=== PATIENT | male | born 1950 | race African-American/Black ===

== ENCOUNTER 2017-02-11 10:25 | Inpatient (IN) | payer MEDICARE, MEDICAID ==
[~2017-02-11] VITALS: Ht 175.3 cm; Wt 79.4 kg
[2017-02-11] MEDS ORDERED: CROM10DR2 EACHEYE (10:36)
[2017-02-11] MEDS ORDERED: GABA-531 PO (10:36)
[2017-02-11] MEDS ORDERED: DONE10TA11 PO (10:36)
[2017-02-11] MEDS ORDERED: MEMA10TA2 PO (10:37)
[2017-02-11] MEDS ORDERED: FINA5TAB11 PO (10:37)
[2017-02-11] MEDS ORDERED: LITH600C PO (10:38)
[2017-02-11] MEDS ORDERED: TAMS-11 PO (10:38)
[2017-02-11] MEDS ORDERED: LORA1TAB PO (10:39)
[2017-02-11] MEDS ORDERED: OLAN10TA3 PO (10:39)
[2017-02-11] MEDS ORDERED: LATA2.5D2 OP (10:40)
[2017-02-11] MEDS ORDERED: LEVO125T PO (10:40)
[2017-02-11] MEDS ORDERED: SODIUM CHLORIDE 0.9% 1,000 ML IV ONE (10:45)
[2017-02-11] MEDS ORDERED: NALOXONE HCL 1 MG/ML 2ML VIAL IV ONE (10:45)
[2017-02-11 11:16] LABS: HEMATOCRIT. 39.3 % (42.0-52.0); HEMOGLOBIN. 13.2 g/dL (14.0-18.0); MEAN CORPUSCULAR HEMOGLOBIN 30.5 pg (28.0-32.0); MEAN CORPUSCULAR VOLUME 90.6 fL (80.0-94.0); MEAN PLATELET VOLUME 7.8 fl (7.4-10.4); PLATELET 313 x1000/uL (130-400); RED BLOOD CELL COUNT 4.34 mill/uL (4.7-6.1); RED CELL DISTRIBUTION WIDTH 13.5 % (11.6-14.6)
[2017-02-11 11:30] LABS: CARBON DIOXIDE 30 mEq/L (21-32); CHLORIDE 107 mEq/L (98-107); ETHANOL BLOOD < 10 mg/dL
[2017-02-11] MEDS ORDERED: CEFTRIAXONE 1 G PREMIX 50 ML IV ONE (11:30)
[2017-02-11 11:34] LABS: TROPONIN I < 0.02 ng/mL (0.00-0.04)
[2017-02-11 11:34] LABS: CLARITY URINE CLEAR (CLEAR); COLOR URINE DARK YELLOW (YELLOW); GLUCOSE URINE NEGATIVE (NEGATIVE); KETONES URINE NEGATIVE (NEGATIVE); LEUKOCYTE ESTERASE URINE TRACE (NEGATIVE); NITRITE URINE NEGATIVE (NEGATIVE); OCCULT BLOOD URINE 2+ (NEGATIVE); PH URINE 7.5 (4.5-8.0); PROTEIN URINE NEGATIVE (NEGATIVE); SPECIFIC GRAVITY URINE 1.012 (1.005-1.030)
[2017-02-11 11:38] LABS: PLATELET ESTIMATE NORMAL
[2017-02-11 11:45] LABS: PARTIAL THROMBOPLASTIN TIME 29.4 sec (23.4-31.0); PROTHROMBIN TIME 10.6 sec (9.4-11.6)
[2017-02-11 11:52] LABS: *AMPHETAMINES SCREEN URINE NEGATIVE (NEGATIVE); *BARBITURATES SCREEN URINE NEGATIVE (NEGATIVE); *BENZODIAZEPINES SCREEN URINE NEGATIVE (NEGATIVE); *COCAINE SCREEN URINE NEGATIVE (NEGATIVE); CANNABINOID URINE SCREEN NEGATIVE (NEGATIVE); METHADONE URINE SCREEN NEGATIVE (NEGATIVE); OPIATES URINE SCREEN NEGATIVE (NEGATIVE); PHENCYCLIDINE URINE SCREEN NEGATIVE (NEGATIVE)
[2017-02-11] MEDS ORDERED: LEVOFLOXACIN 500MG PREMIX 100 ML IV ONE (12:00)
[2017-02-11] MEDS ORDERED: VANCOMYCIN IV PER PHARMACY XX SCH (16:15)
[2017-02-11 16:26] LABS: T4 FREE 1.19 ng/dL (0.76-1.46)
[2017-02-11 17:14] LABS: FOLIC ACID (FOLATE) SERUM 12.1 ng/mL (>5.38)
[2017-02-11 17:33] VITALS: BP 131/70
[2017-02-11] MEDS: MULTIVITAMINS,THER W-MINERALS TABLET PO SCH (19:14)
[2017-02-11] MEDS ORDERED: ACETAMINOPHEN 325MG TABLET PO PRN (19:15)
[2017-02-11] MEDS ORDERED: ONDANSETRON HCL 4MG/2ML VIAL IV PRN (19:15)
[2017-02-11] MEDS ORDERED: IPRATROPIUM/ALBUTEROL 0.5-3(2.5)MG/3ML NEB INH PRN (19:15)
[2017-02-11] MEDS ORDERED: DOCUSATE SODIUM 100MG CAPSULE PO PRN (19:15)
[2017-02-11] MEDS ORDERED: POTASSIUM CHLORIDE 20MEQ TABLET SR PO NR (19:30)
[2017-02-11] MEDS: PIPERACILLIN/TAZ 3.375G PREMIX 50 ML IV SCH ×2 (19:36→23:57)
[2017-02-11] MEDS ORDERED: POTASSIUM CHLORIDE 20MEQ/PACKET PO NR (19:45)
[2017-02-11 20:00] VITALS: BP 136/70
[2017-02-11] MEDS ORDERED: VANCOMYCIN 1500MG in DEXTROSE 5% WATER 250ML IV NR (20:00)
[2017-02-11] MEDS ORDERED: DEXT 5%/0.45% NACL KCL 10MEQ/L 1,000 ML IV SCH (21:00)
[2017-02-11] MEDS: DEXT 5%/0.45% NACL KCL 10MEQ/L 1,000 ML IV SCH (22:21)
[2017-02-12] VITALS: BP 132/72
[2017-02-12 04:00] VITALS: BP 133/68
[2017-02-12] MEDS: PIPERACILLIN/TAZ 3.375G PREMIX 50 ML IV SCH ×4 (05:00→23:23)
[2017-02-12] MEDS: VANCOMYCIN 1250MG in DEXTROSE 5% WATER 250ML IV SCH ×2 (06:05→18:56)
[2017-02-12 07:09] LABS: HEMATOCRIT. 37.1 % (42.0-52.0); HEMOGLOBIN. 12.4 g/dL (14.0-18.0); MEAN CORPUSCULAR HEMOGLOBIN 30.6 pg (28.0-32.0); MEAN CORPUSCULAR VOLUME 91.6 fL (80.0-94.0); MEAN PLATELET VOLUME 7.9 fl (7.4-10.4); PLATELET 317 x1000/uL (130-400); RED BLOOD CELL COUNT 4.05 mill/uL (4.7-6.1); RED CELL DISTRIBUTION WIDTH 13.4 % (11.6-14.6)
[2017-02-12 08:00] VITALS: BP 121/65
[2017-02-12 08:27] LABS: CARBON DIOXIDE 25 mEq/L (21-32); CHLORIDE 112 mEq/L (98-107)
[2017-02-12] MEDS ORDERED: CROMOLYN SODIUM EACHEYE SCH (09:00)
[2017-02-12] MEDS: LEVOTHYROXINE SODIUM 125MCG TABLET PO SCH (09:28)
[2017-02-12] MEDS: FAMOTIDINE 20MG/2ML VIAL IV SCH ×2 (09:28→20:47)
[2017-02-12] MEDS: MULTIVITAMINS,THER W-MINERALS TABLET PO SCH (09:29)
[2017-02-12] MEDS: LORAZEPAM 1MG TABLET PO PRN (09:29)
[2017-02-12] MEDS: FINASTERIDE 5MG TABLET PO SCH (09:29)
[2017-02-12] MEDS: MEMANTINE HCL 10MG TABLET PO SCH (09:29)
[2017-02-12] MEDS: DEXT 5%/0.45% NACL KCL 10MEQ/L 1,000 ML IV SCH ×2 (09:30→17:51)
[2017-02-12] MEDS ORDERED: POTASSIUM CHLORIDE 20MEQ TABLET SR PO NR (11:30)
[2017-02-12 12:00] VITALS: BP 136/65
[2017-02-12] MEDS: TAMSULOSIN HCL 0.4MG SR CAPSULE PO SCH (12:17)
[2017-02-12 16:00] VITALS: BP 141/69
[2017-02-12 20:00] VITALS: BP 134/77
[2017-02-12] MEDS: GABAPENTIN 300MG CAPSULE PO SCH (20:46)
[2017-02-12] MEDS: OLANZAPINE 10MG TABLET PO SCH (20:47)
[2017-02-12] MEDS: DONEPEZIL HCL 10MG TABLET PO SCH (20:47)
[2017-02-12] MEDS: LATANOPROST 0.005% OPHTH DROPS 2.5ML BOTHEYE SCH (20:47)
[2017-02-12] MEDS: METOPROLOL TARTRATE 25MG TABLET PO SCH (20:49)
[2017-02-12 22:45] LABS: PLATELET ESTIMATE NORMAL
[2017-02-13] VITALS: BP 113/52
[2017-02-13 04:00] VITALS: BP 127/67
[2017-02-13] MEDS: PIPERACILLIN/TAZ 3.375G PREMIX 50 ML IV SCH ×4 (05:04→23:45)
[2017-02-13] MEDS: VANCOMYCIN 1250MG in DEXTROSE 5% WATER 250ML IV SCH ×2 (06:01→18:57)
[2017-02-13 06:50] LABS: HEMATOCRIT. 35.5 % (42.0-52.0); HEMOGLOBIN. 11.8 g/dL (14.0-18.0); MEAN CORPUSCULAR HEMOGLOBIN 30.4 pg (28.0-32.0); MEAN CORPUSCULAR VOLUME 91.2 fL (80.0-94.0); MEAN PLATELET VOLUME 7.8 fl (7.4-10.4); PLATELET 330 x1000/uL (130-400); RED BLOOD CELL COUNT 3.89 mill/uL (4.7-6.1); RED CELL DISTRIBUTION WIDTH 13.5 % (11.6-14.6)
[2017-02-13 06:59] LABS: CARBON DIOXIDE 26 mEq/L (21-32); CHLORIDE 117 mEq/L (98-107)
[2017-02-13 08:00] VITALS: BP 108/59
[2017-02-13] MEDS: FAMOTIDINE 20MG/2ML VIAL IV SCH ×2 (08:38→21:48)
[2017-02-13] MEDS: MULTIVITAMINS,THER W-MINERALS TABLET PO SCH (08:40)
[2017-02-13] MEDS: METOPROLOL TARTRATE 25MG TABLET PO SCH ×2 (08:40→21:00)
[2017-02-13] MEDS: FINASTERIDE 5MG TABLET PO SCH (08:40)
[2017-02-13] MEDS: LEVOTHYROXINE SODIUM 125MCG TABLET PO SCH (08:40)
[2017-02-13] MEDS: MEMANTINE HCL 10MG TABLET PO SCH (08:40)
[2017-02-13] MEDS: TAMSULOSIN HCL 0.4MG SR CAPSULE PO SCH (08:48)
[2017-02-13 10:04] LABS: AMMONIA 28 uMol/L (<32)
[2017-02-13] MEDS ORDERED: POTASSIUM CHLORIDE 20MEQ TABLET SR PO NR (10:30)
[2017-02-13 11:36] LABS: CREATINE KINASE 396 IU/L (39-308)
[2017-02-13 12:00] VITALS: BP 140/71
[2017-02-13] MEDS: DEXTROSE 5% WATER 1,000 ML IV SCH ×2 (12:37→23:45)
[2017-02-13 14:25] LABS: GLUCOSE URINE NEGATIVE (NEGATIVE); KETONES URINE TRACE (NEGATIVE); LEUKOCYTE ESTERASE URINE 2+ (NEGATIVE); NITRITE URINE NEGATIVE (NEGATIVE); OCCULT BLOOD URINE 3+ (NEGATIVE); PROTEIN URINE 3+ (NEGATIVE); SPECIFIC GRAVITY URINE 1.005 (1.005-1.030); UROBILINOGEN URINE 0.2 E.U./dL (0.2-1.0)
[2017-02-13 14:30] LABS: CLARITY URINE CLOUDY (CLEAR); COLOR URINE RED (YELLOW)
[2017-02-13 16:00] VITALS: BP 136/78
[2017-02-13 16:34] LABS: PLATELET ESTIMATE NORMAL
[2017-02-13 20:00] VITALS: BP 115/52
[2017-02-13] MEDS: GABAPENTIN 300MG CAPSULE PO SCH (21:48)
[2017-02-13] MEDS: DONEPEZIL HCL 10MG TABLET PO SCH (21:48)
[2017-02-13] MEDS: OLANZAPINE 10MG TABLET PO SCH (21:48)
[2017-02-13] MEDS: LATANOPROST 0.005% OPHTH DROPS 2.5ML BOTHEYE SCH (21:49)
[2017-02-14] VITALS: BP 133/66
[2017-02-14 04:00] VITALS: BP 153/60
[2017-02-14] MEDS ORDERED: VANCOMYCIN 1250MG in DEXTROSE 5% WATER 250ML IV SCH (04:00)
[2017-02-14] MEDS: PIPERACILLIN/TAZ 3.375G PREMIX 50 ML IV SCH ×3 (05:33→19:08)
[2017-02-14 05:58] LABS: CARBON DIOXIDE 25 mEq/L (21-32); CHLORIDE 119 mEq/L (98-107)
[2017-02-14 06:01] LABS: BASOPHILS % 0.6 % (0.0-2.0); HEMATOCRIT. 37.7 % (42.0-52.0); HEMOGLOBIN. 12.5 g/dL (14.0-18.0); LYMPHOCYTES % 7.9 % (20.0-50.0); MEAN CORPUSCULAR HEMOGLOBIN 30.5 pg (28.0-32.0); MEAN CORPUSCULAR VOLUME 92.2 fL (80.0-94.0); MEAN PLATELET VOLUME 7.7 fl (7.4-10.4); MONOCYTES % 6.3 % (2.0-8.0); NEUTROPHILS % 83.2 % (40.0-76.0); PLATELET 364 x1000/uL (130-400); RED BLOOD CELL COUNT 4.09 mill/uL (4.7-6.1)
[2017-02-14 08:00] VITALS: BP 127/66
[2017-02-14] MEDS ORDERED: DIATR MEGLU/DIATRIZOATE SOLN 30ML PO SCH (08:45)
[2017-02-14] MEDS: FAMOTIDINE 20MG/2ML VIAL IV SCH ×2 (08:54→21:25)
[2017-02-14] MEDS: FINASTERIDE 5MG TABLET PO SCH (08:54)
[2017-02-14] MEDS: TAMSULOSIN HCL 0.4MG SR CAPSULE PO SCH (08:55)
[2017-02-14] MEDS: MEMANTINE HCL 10MG TABLET PO SCH (08:56)
[2017-02-14] MEDS: METOPROLOL TARTRATE 25MG TABLET PO SCH ×2 (08:56→21:00)
[2017-02-14] MEDS: MULTIVITAMINS,THER W-MINERALS TABLET PO SCH (08:56)
[2017-02-14] MEDS: LEVOTHYROXINE SODIUM 125MCG TABLET PO SCH (08:56)
[2017-02-14 12:00] VITALS: BP 147/74
[2017-02-14] MEDS: DEXTROSE 5% WATER 1,000 ML IV SCH (12:19)
[2017-02-14] MEDS ORDERED: POTASSIUM CHLORIDE 20MEQ TABLET SR PO SCH (13:00)
[2017-02-14] MEDS ORDERED: CLONIDINE 0.1MG TABLET PO PRN (13:15)
[2017-02-14 16:00] VITALS: BP 144/67
[2017-02-14] MEDS: LORAZEPAM 1MG TABLET PO PRN (16:11)
[2017-02-14] MEDS: AMLODIPINE 2.5MG TABLET PO SCH (16:12)
[2017-02-14 20:00] VITALS: BP 143/84
[2017-02-14] MEDS: GABAPENTIN 300MG CAPSULE PO SCH ×2 (21:00→21:25)
[2017-02-14] MEDS: DONEPEZIL HCL 10MG TABLET PO SCH ×2 (21:00→21:25)
[2017-02-14] MEDS: OLANZAPINE 10MG TABLET PO SCH ×2 (21:00→21:25)
[2017-02-14] MEDS: LATANOPROST 0.005% OPHTH DROPS 2.5ML BOTHEYE SCH (21:25)
[2017-02-14] MEDS: VANCOMYCIN 1250MG in DEXTROSE 5% WATER 250ML IV SCH (21:25)
[2017-02-15] VITALS: BP 130/64
[2017-02-15] MEDS: PIPERACILLIN/TAZ 3.375G PREMIX 50 ML IV SCH ×5 (00:31→23:59)
[2017-02-15] MEDS: DEXTROSE 5% WATER 1,000 ML IV SCH (00:32)
[2017-02-15 04:00] VITALS: BP 127/70
[2017-02-15 06:31] LABS: HEMATOCRIT. 39.9 % (42.0-52.0); HEMOGLOBIN. 13.2 g/dL (14.0-18.0); MEAN CORPUSCULAR HEMOGLOBIN 30.5 pg (28.0-32.0); MEAN CORPUSCULAR VOLUME 92.3 fL (80.0-94.0); MEAN PLATELET VOLUME 7.6 fl (7.4-10.4); PLATELET 402 x1000/uL (130-400); RED BLOOD CELL COUNT 4.32 mill/uL (4.7-6.1); RED CELL DISTRIBUTION WIDTH 14.1 % (11.6-14.6)
[2017-02-15 07:05] LABS: CHLORIDE 117 mEq/L (98-107)
[2017-02-15 07:16] LABS: CARBON DIOXIDE 24 mEq/L (21-32); TROPONIN I < 0.02 ng/mL (0.00-0.04)
[2017-02-15] MEDS: LEVOTHYROXINE SODIUM 125MCG TABLET PO SCH ×2 (07:40→08:39)
[2017-02-15 08:00] VITALS: BP 141/67
[2017-02-15] MEDS: FAMOTIDINE 20MG/2ML VIAL IV SCH ×2 (08:38→20:33)
[2017-02-15] MEDS: MEMANTINE HCL 10MG TABLET PO SCH ×2 (08:39→09:00)
[2017-02-15] MEDS: METOPROLOL TARTRATE 25MG TABLET PO SCH ×3 (08:39→20:31)
[2017-02-15] MEDS: FINASTERIDE 5MG TABLET PO SCH (08:39)
[2017-02-15] MEDS: AMLODIPINE 2.5MG TABLET PO SCH ×4 (08:39→20:31)
[2017-02-15] MEDS: VANCOMYCIN 1250MG in DEXTROSE 5% WATER 250ML IV SCH ×2 (08:40→20:33)
[2017-02-15] MEDS: MULTIVITAMINS,THER W-MINERALS TABLET PO SCH ×2 (08:44→09:00)
[2017-02-15] MEDS: TAMSULOSIN HCL 0.4MG SR CAPSULE PO SCH ×2 (08:44→09:00)
[2017-02-15] MEDS ORDERED: POTASSIUM CHLORIDE 20MEQ TABLET SR PO NR (11:00)
[2017-02-15 12:00] VITALS: BP 112/79
[2017-02-15] MEDS: POTASSIUM CHLORIDE INJ 30 MEQ in DEXT 5%/0.2% NACL 1,000 ML IV SCH (13:24)
[2017-02-15 16:00] VITALS: BP 128/72
[2017-02-15 20:21] VITALS: BP 120/57
[2017-02-15] MEDS: DONEPEZIL HCL 10MG TABLET PO SCH (20:30)
[2017-02-15] MEDS: GABAPENTIN 300MG CAPSULE PO SCH (20:31)
[2017-02-15] MEDS: OLANZAPINE 10MG TABLET PO SCH (20:31)
[2017-02-15] MEDS: LATANOPROST 0.005% OPHTH DROPS 2.5ML BOTHEYE SCH (20:33)
[2017-02-16] VITALS: BP 139/64
[2017-02-16 04:00] VITALS: BP 137/65
[2017-02-16 05:51] LABS: HEMATOCRIT. 39.9 % (42.0-52.0); HEMOGLOBIN. 13.2 g/dL (14.0-18.0); MEAN CORPUSCULAR HEMOGLOBIN 30.5 pg (28.0-32.0); MEAN CORPUSCULAR VOLUME 92.3 fL (80.0-94.0); MEAN PLATELET VOLUME 7.7 fl (7.4-10.4); PLATELET 430 x1000/uL (130-400); RED BLOOD CELL COUNT 4.33 mill/uL (4.7-6.1); RED CELL DISTRIBUTION WIDTH 14.1 % (11.6-14.6)
[2017-02-16] MEDS: PIPERACILLIN/TAZ 3.375G PREMIX 50 ML IV SCH ×2 (06:02→11:26)
[2017-02-16] MEDS: POTASSIUM CHLORIDE INJ 30 MEQ in DEXT 5%/0.2% NACL 1,000 ML IV SCH (06:02)
[2017-02-16] MEDS: LEVOTHYROXINE SODIUM 125MCG TABLET PO SCH (07:40)
[2017-02-16 08:00] VITALS: BP 150/83
[2017-02-16] MEDS: MEMANTINE HCL 10MG TABLET PO SCH (08:23)
[2017-02-16] MEDS: METOPROLOL TARTRATE 25MG TABLET PO SCH (08:23)
[2017-02-16] MEDS: FINASTERIDE 5MG TABLET PO SCH (08:23)
[2017-02-16] MEDS: AMLODIPINE 2.5MG TABLET PO SCH (08:23)
[2017-02-16] MEDS: TAMSULOSIN HCL 0.4MG SR CAPSULE PO SCH (08:23)
[2017-02-16] MEDS: MULTIVITAMINS,THER W-MINERALS TABLET PO SCH (08:24)
[2017-02-16] MEDS: VANCOMYCIN 1250MG in DEXTROSE 5% WATER 250ML IV SCH (08:29)
[2017-02-16] MEDS: FAMOTIDINE 20MG/2ML VIAL IV SCH (08:29)
[2017-02-16 11:09] LABS: BG CARBOXYHEMOGLOBIN 0.6 % (0.5-1.5); BG DEOXYHEMOGLOBIN 1.8 % (0.0-5.0); BG FRACTION INSPIRED OXYGEN 28; BG HCO3 ACT 26.9 mmol/L (22.0-26.0); BG METHEMOGLOBIN 0.2 % (0.0-1.5); BG OXYGEN SATURATION 98.2 % (92.0-98.5); BG OXYHEMOGLOBIN 97.4 % (94.0-97.0); BG PH 7.457 (7.350-7.450); BG PO2 103.9 mmHg (75.0-100.0); BG SAMPLE SITE LEFT RADIAL; BG TOTAL HEMOGLOBIN 14.6 g/dL (12.0-18.0); BG VENT MODE NASAL CANNULA
[2017-02-16] MEDS ORDERED: POTASSIUM CHLORIDE 20MEQ TABLET SR PO SCH (11:15)
[2017-02-16 12:00] VITALS: BP 147/86
[2017-02-16 13:48] LABS: PLATELET ESTIMATE NORMAL
[2017-02-16] MEDS ORDERED: KCL 20MEQ/100ML PREMIX 100 ML IV SCH (15:00)
[2017-02-16 16:00] VITALS: BP 158/83
[2017-02-16 16:42] VITALS: BP 158/83
[2017-02-16] MEDS ORDERED: VANCOMYCIN 1250MG in DEXTROSE 5% WATER 250ML IV NR (21:00)
[2017-02-16 21:30] LABS: PLATELET ESTIMATE NORMAL
== END 2017-02-16 18:06 | DRG 871 ==
LOC: ER 10:25 → 7WST 11:46 → EDBEDREQ 11:49 → EDBEDREQTM 11:49 → SUPCPDRO 15:34 → ENRESERV 16:30 → CANBEDREQ 16:41
PROVIDERS: ADMIT Family Medicine Adult Medicine; ATTEND Family Medicine Adult Medicine
DX: A41.9 Sepsis, unspecified organism (principal); G92 Toxic encephalopathy; I47.2 Ventricular tachycardia; N17.9 Acute kidney failure, unspecified; E87.0 Hyperosmolality and hypernatremia; N39.0 Urinary tract infection, site not specified; E44.1 Mild protein-calorie malnutrition; F20.0 Paranoid schizophrenia; I47.1 Supraventricular tachycardia; J98.11 Atelectasis; G30.9 Alzheimer's disease, unspecified; F02.80 Dementia in other diseases classified elsewhere, unspecified severity, without behavioral disturbance, psychotic disturbance, mood disturbance, and anxiety; G20 Parkinson's disease; E03.9 Hypothyroidism, unspecified; E78.5 Hyperlipidemia, unspecified; E87.6 Hypokalemia; F41.9 Anxiety disorder, unspecified; I10 Essential (primary) hypertension; K80.20 Calculus of gallbladder without cholecystitis without obstruction; N40.0 Benign prostatic hyperplasia without lower urinary tract symptoms; R31.0 Gross hematuria; Z78.1 Physical restraint status; Z79.899 Other long term (current) drug therapy; Z68.25 Body mass index [BMI] 25.0-25.9, adult; Z87.440 Personal history of urinary (tract) infections; Z87.891 Personal history of nicotine dependence
CPT/HCPCS: 36415; 36600; 51702; 70450; 70551; 71010; 74176; 76705; 80048; 80053; 80061; 80076; 80178; 80202; 80305; 81001; 82140; 82248; 82375; 82550; 82607; 82746; 82805; 82962; 83036; 83605; 83690; 83735; 83880; 84100; 84439; 84443; 84481; 84484; 85025; 85610; 85730; 87040; 87086; 92610; 93005; 93306; 93970; 96365; 96367; 96375; 99291; G0482; J0696; J1956; J2310; J2543; J3370; J3480; J3490; J7030; J7050; J7060; J7070; Q9963; A4315

== ENCOUNTER 2017-03-17 18:40 | Inpatient (IN) | payer MEDICARE, MEDICAID ==
[~2017-03-17] VITALS: Ht 177.8 cm; Wt 56.7 kg
[2017-03-17] MEDS ORDERED: SODIUM CHLORIDE 0.9% 1,000 ML IV ONE (19:07)
[2017-03-17 20:15] LABS: HEMATOCRIT. 51.5 % (42.0-52.0); HEMOGLOBIN. 17.2 g/dL (14.0-18.0); MEAN CORPUSCULAR HEMOGLOBIN 30.3 pg (28.0-32.0); MEAN CORPUSCULAR VOLUME 90.9 fL (80.0-94.0); MEAN PLATELET VOLUME 8.2 fl (7.4-10.4); PLATELET 292 x1000/uL (130-400); RED BLOOD CELL COUNT 5.66 mill/uL (4.7-6.1); RED CELL DISTRIBUTION WIDTH 14.3 % (11.6-14.6)
[2017-03-17 20:20] LABS: CHLORIDE 119 mEq/L (98-107); INR 1.2; PROTHROMBIN TIME 12.5 sec (9.4-11.6)
[2017-03-17 20:24] LABS: CARBON DIOXIDE 27 mEq/L (21-32)
[2017-03-17 20:32] LABS: PLATELET ESTIMATE NORMAL
[2017-03-18] MEDS ORDERED: SODIUM CHLORIDE 0.9% 1,000 ML IV SCH (00:56)
[2017-03-18 08:00] VITALS: BP 127/70
[2017-03-18] MEDS ORDERED: OMEPRAZOLE 20MG CAPSULE EXTENDED RELEASE PO SCH (11:15)
[2017-03-18 12:00] VITALS: BP 138/56
[2017-03-18 13:53] VITALS: BP 127/70
[2017-03-18] MEDS ORDERED: LORAZEPAM 1MG TABLET PO PRN (15:15)
[2017-03-18] MEDS: LITHIUM CARBONATE 150 MG CAPSULE PO SCH (17:00)
[2017-03-18] MEDS ORDERED: ONDANSETRON HCL 4MG/2ML VIAL IV PRN (17:00)
[2017-03-18] MEDS ORDERED: DOCUSATE SODIUM 100MG CAPSULE PO PRN (17:00)
[2017-03-18] MEDS ORDERED: IPRATROPIUM/ALBUTEROL 0.5-3(2.5)MG/3ML NEB INH PRN (17:00)
[2017-03-18] MEDS: DEXTROSE 5% WATER 1,000 ML IV SCH (17:31)
[2017-03-18 19:19] LABS: CLARITY URINE CLEAR (CLEAR); COLOR URINE YELLOW (YELLOW); GLUCOSE URINE NEGATIVE (NEGATIVE); KETONES URINE NEGATIVE (NEGATIVE); LEUKOCYTE ESTERASE URINE TRACE (NEGATIVE); NITRITE URINE NEGATIVE (NEGATIVE); OCCULT BLOOD URINE NEGATIVE (NEGATIVE); PH URINE 6.5 (4.5-8.0); PROTEIN URINE NEGATIVE (NEGATIVE); SPECIFIC GRAVITY URINE 1.016 (1.005-1.030); UROBILINOGEN URINE 0.2 E.U./dL (0.2-1.0)
[2017-03-18 19:38] LABS: *AMPHETAMINES SCREEN URINE NEGATIVE (NEGATIVE); *BARBITURATES SCREEN URINE NEGATIVE (NEGATIVE); *BENZODIAZEPINES SCREEN URINE NEGATIVE (NEGATIVE); *COCAINE SCREEN URINE NEGATIVE (NEGATIVE); CANNABINOID URINE SCREEN NEGATIVE (NEGATIVE); METHADONE URINE SCREEN NEGATIVE (NEGATIVE); OPIATES URINE SCREEN NEGATIVE (NEGATIVE); PHENCYCLIDINE URINE SCREEN NEGATIVE (NEGATIVE)
[2017-03-18 20:00] VITALS: BP 121/57
[2017-03-18] MEDS: LATANOPROST 0.005% OPHTH DROPS 2.5ML BOTHEYE SCH (20:52)
[2017-03-18] MEDS: GABAPENTIN 300MG CAPSULE PO SCH (20:53)
[2017-03-18] MEDS: DONEPEZIL HCL 10MG TABLET PO SCH (20:53)
[2017-03-18] MEDS: TAMSULOSIN HCL 0.4MG SR CAPSULE PO SCH (20:53)
[2017-03-18] MEDS: OLANZAPINE 10MG TABLET PO SCH (21:00)
[2017-03-18] MEDS ORDERED: LORAZEPAM 2MG/ML CPJ IV PRN (23:30)
[2017-03-19] VITALS: BP 109/43
[2017-03-19] MEDS ORDERED: LORAZEPAM 1MG TABLET PO PRN (03:15)
[2017-03-19 04:00] VITALS: BP 122/67
[2017-03-19] MEDS ORDERED: LEVOTHYROXINE SODIUM 125MCG TABLET PO SCH (07:20)
[2017-03-19 07:33] LABS: BASOPHILS % 0.3 % (0.0-2.0); EOSINOPHILS % 0.6 % (0.0-5.0); HEMATOCRIT. 47.3 % (42.0-52.0); HEMOGLOBIN. 15.5 g/dL (14.0-18.0); LYMPHOCYTES % 9.6 % (20.0-50.0); MEAN CORPUSCULAR HEMOGLOBIN 30.4 pg (28.0-32.0); MEAN CORPUSCULAR VOLUME 92.6 fL (80.0-94.0); MEAN PLATELET VOLUME 8.4 fl (7.4-10.4); MONOCYTES % 4.5 % (2.0-8.0); PLATELET 254 x1000/uL (130-400); RED BLOOD CELL COUNT 5.11 mill/uL (4.7-6.1); RED CELL DISTRIBUTION WIDTH 14.3 % (11.6-14.6)
[2017-03-19 07:53] LABS: PHOSPHORUS 2.5 mg/dL (2.5-4.9)
[2017-03-19 08:00] VITALS: BP 137/55
[2017-03-19] MEDS: LITHIUM CARBONATE 150 MG CAPSULE PO SCH ×2 (09:00→17:00)
[2017-03-19] MEDS: FINASTERIDE 5MG TABLET PO SCH (09:00)
[2017-03-19] MEDS: MEMANTINE HCL 10MG TABLET PO SCH (09:00)
[2017-03-19] MEDS: PANTOPRAZOLE SODIUM 40 MG/VIAL IV SCH (09:00)
[2017-03-19 12:00] VITALS: BP 134/61
[2017-03-19 12:08] LABS: CREATINE KINASE 21 IU/L (39-308)
[2017-03-19 16:00] VITALS: BP 131/56
[2017-03-19] MEDS ORDERED: LEVOFLOXACIN 500MG PREMIX 100 ML IV NR (17:00)
[2017-03-19 20:00] VITALS: BP 151/77
[2017-03-19] MEDS: TAMSULOSIN HCL 0.4MG SR CAPSULE PO SCH (21:00)
[2017-03-19] MEDS: DONEPEZIL HCL 10MG TABLET PO SCH (21:00)
[2017-03-19] MEDS: GABAPENTIN 300MG CAPSULE PO SCH (21:00)
[2017-03-19] MEDS: OLANZAPINE 10MG TABLET PO SCH (21:00)
[2017-03-19] MEDS: LATANOPROST 0.005% OPHTH DROPS 2.5ML BOTHEYE SCH (21:00)
[2017-03-20] VITALS: BP 157/77
[2017-03-20 04:00] VITALS: BP 167/58
[2017-03-20 06:23] LABS: HEMOGLOBIN 16.1 g/dL (14.0-18.0); MEAN CORPUSCULAR HEMOGLOBIN 30.3 pg (28.0-32.0); MEAN CORPUSCULAR VOLUME 92.1 fL (80.0-94.0); PLATELET 244 x1000/uL (130-400); RED BLOOD CELL COUNT 5.31 mill/uL (4.7-6.1); RED CELL DISTRIBUTION WIDTH 14.5 % (11.6-14.6)
[2017-03-20 06:37] LABS: AMMONIA 18 uMol/L (<32)
[2017-03-20 08:00] VITALS: BP 144/70
[2017-03-20 08:22] LABS: CARBON DIOXIDE 27 mEq/L (21-32); CHLORIDE 125 mEq/L (98-107)
[2017-03-20] MEDS: PANTOPRAZOLE SODIUM 40 MG/VIAL IV SCH (09:44)
[2017-03-20] MEDS: MEMANTINE HCL 10MG TABLET PO SCH (09:44)
[2017-03-20] MEDS: FINASTERIDE 5MG TABLET PO SCH (09:44)
[2017-03-20] MEDS: DEXTROSE 5% WATER 1,000 ML IV SCH (09:44)
[2017-03-20] MEDS: LEVOTHYROXINE SODIUM 100 MCG/ VIAL IV SCH (09:45)
[2017-03-20 12:00] VITALS: BP 151/73
[2017-03-20 16:00] VITALS: BP 145/57
[2017-03-20] MEDS: LEVOFLOXACIN 250MG PREMIX 50 ML IV SCH (16:57)
[2017-03-20 20:00] VITALS: BP 124/64
[2017-03-20] MEDS: GABAPENTIN 300MG CAPSULE PO SCH (21:59)
[2017-03-20] MEDS: LATANOPROST 0.005% OPHTH DROPS 2.5ML BOTHEYE SCH (21:59)
[2017-03-20] MEDS: TAMSULOSIN HCL 0.4MG SR CAPSULE PO SCH (22:00)
[2017-03-20] MEDS: DONEPEZIL HCL 10MG TABLET PO SCH (22:01)
[2017-03-20] MEDS: HYDROCHLOROTHIAZIDE 25MG TABLET PO SCH (22:01)
[2017-03-20] MEDS: AMILORIDE HCL 5 MG TABLET PO SCH (22:01)
[2017-03-20] MEDS: OLANZAPINE 10MG TABLET PO SCH (22:02)
[2017-03-20] MEDS ORDERED: POTASSIUM CHLORIDE 20MEQ TABLET SR PO NR (23:15)
[2017-03-21] VITALS: BP 132/74
[2017-03-21 00:20] LABS: SODIUM URINE RANDOM 51 mEq/L
[2017-03-21] MEDS: IPRATROPIUM/ALBUTEROL 0.5-3(2.5)MG/3ML NEB HHN SCH ×4 (03:26→21:56)
[2017-03-21 04:00] VITALS: BP_SYST 136; BP_SYST 141; BP_DIAS 70; BP_DIAS 73
[2017-03-21 05:21] LABS: BASOPHILS % 0.6 % (0.0-2.0); EOSINOPHILS % 1.4 % (0.0-5.0); HEMATOCRIT. 46.4 % (42.0-52.0); HEMOGLOBIN. 15.3 g/dL (14.0-18.0); LYMPHOCYTES % 13.6 % (20.0-50.0); MEAN CORPUSCULAR HEMOGLOBIN 30.4 pg (28.0-32.0); MEAN CORPUSCULAR VOLUME 92.4 fL (80.0-94.0); MEAN PLATELET VOLUME 8.6 fl (7.4-10.4); MONOCYTES % 4.9 % (2.0-8.0); NEUTROPHILS % 79.5 % (40.0-76.0); PLATELET 208 x1000/uL (130-400); RED BLOOD CELL COUNT 5.02 mill/uL (4.7-6.1); RED CELL DISTRIBUTION WIDTH 14.5 % (11.6-14.6)
[2017-03-21 07:00] LABS: HEPATITIS B SURFACE ANTIGEN NEGATIVE
[2017-03-21 07:28] LABS: HEPATITIS B CORE AB IGM NEGATIVE
[2017-03-21 07:30] LABS: HEPATITIS A AB IGM NEGATIVE (NEGATIVE)
[2017-03-21 08:00] VITALS: BP 114/90
[2017-03-21] MEDS: HYDROCHLOROTHIAZIDE 25MG TABLET PO SCH (08:37)
[2017-03-21] MEDS: PANTOPRAZOLE SODIUM 40 MG/VIAL IV SCH (08:37)
[2017-03-21] MEDS: DEXTROSE 5% WATER 1,000 ML IV SCH ×2 (08:37→13:01)
[2017-03-21] MEDS: FINASTERIDE 5MG TABLET PO SCH (08:37)
[2017-03-21] MEDS: MEMANTINE HCL 10MG TABLET PO SCH (08:37)
[2017-03-21 09:07] LABS: FOLICLE STIMULATING HORMONE 4.1 mIU/mL (1.5-12.4)
[2017-03-21] MEDS: LEVOTHYROXINE SODIUM 100 MCG/ VIAL IV SCH (09:18)
[2017-03-21] MEDS: AMILORIDE HCL 5 MG TABLET PO SCH (09:18)
[2017-03-21] MEDS ORDERED: POTASSIUM CHLORIDE 20MEQ TABLET SR PO SCH (09:45)
[2017-03-21] MEDS: LITHIUM CARBONATE 150 MG CAPSULE PO SCH ×2 (10:23→16:22)
[2017-03-21 12:00] VITALS: BP 138/72
[2017-03-21 16:00] VITALS: BP 123/61
[2017-03-21] MEDS: LEVOFLOXACIN 250MG PREMIX 50 ML IV SCH (16:22)
[2017-03-21 20:00] VITALS: BP 131/78
[2017-03-21] MEDS: LATANOPROST 0.005% OPHTH DROPS 2.5ML BOTHEYE SCH (21:00)
[2017-03-21] MEDS: DONEPEZIL HCL 10MG TABLET PO SCH (21:46)
[2017-03-21] MEDS: GABAPENTIN 300MG CAPSULE PO SCH (21:46)
[2017-03-21] MEDS: TAMSULOSIN HCL 0.4MG SR CAPSULE PO SCH (21:47)
[2017-03-21] MEDS: OLANZAPINE 10MG TABLET PO SCH (21:47)
[2017-03-22] VITALS: BP 123/69
[2017-03-22] MEDS: IPRATROPIUM/ALBUTEROL 0.5-3(2.5)MG/3ML NEB HHN SCH ×4 (01:25→20:34)
[2017-03-22 04:00] VITALS: BP 120/70
[2017-03-22] MEDS: FAMOTIDINE 20MG TABLET PO SCH (07:01)
[2017-03-22 08:00] VITALS: BP 130/73
[2017-03-22] MEDS: AMILORIDE HCL 5 MG TABLET PO SCH (10:33)
[2017-03-22] MEDS: MEMANTINE HCL 10MG TABLET PO SCH (10:33)
[2017-03-22] MEDS: HYDROCHLOROTHIAZIDE 25MG TABLET PO SCH (10:33)
[2017-03-22] MEDS: FINASTERIDE 5MG TABLET PO SCH (10:34)
[2017-03-22] MEDS: LEVOTHYROXINE SODIUM 100 MCG/ VIAL IV SCH (10:37)
[2017-03-22] MEDS ORDERED: POTASSIUM CHLORIDE 20MEQ TABLET SR PO NR (11:00)
[2017-03-22 12:00] VITALS: BP 121/57
[2017-03-22 16:00] VITALS: BP 116/72
[2017-03-22 17:12] LABS: TESTOSTERONE FREE 23.9 pg/mL (6.6-18.1)
[2017-03-22] MEDS: LEVOFLOXACIN 250MG PREMIX 50 ML IV SCH (17:40)
[2017-03-22 20:00] VITALS: BP 137/64
[2017-03-22] MEDS: GABAPENTIN 300MG CAPSULE PO SCH (20:50)
[2017-03-22] MEDS: LATANOPROST 0.005% OPHTH DROPS 2.5ML BOTHEYE SCH (20:50)
[2017-03-22] MEDS: TAMSULOSIN HCL 0.4MG SR CAPSULE PO SCH (20:53)
[2017-03-22] MEDS: DONEPEZIL HCL 10MG TABLET PO SCH (20:53)
[2017-03-22] MEDS: OLANZAPINE 10MG TABLET PO SCH (20:54)
[2017-03-23] VITALS: BP 129/70
[2017-03-23 04:00] VITALS: BP 115/68
[2017-03-23] MEDS: IPRATROPIUM/ALBUTEROL 0.5-3(2.5)MG/3ML NEB HHN SCH ×3 (07:48→21:15)
[2017-03-23] MEDS: FAMOTIDINE 20MG TABLET PO SCH (07:55)
[2017-03-23 08:00] VITALS: BP 130/73
[2017-03-23 08:05] LABS: HEMATOCRIT. 43.9 % (42.0-52.0); HEMOGLOBIN. 14.7 g/dL (14.0-18.0); MEAN CORPUSCULAR HEMOGLOBIN 30.6 pg (28.0-32.0); MEAN CORPUSCULAR VOLUME 91.3 fL (80.0-94.0); PLATELET 222 x1000/uL (130-400); RED CELL DISTRIBUTION WIDTH 14.4 % (11.6-14.6)
[2017-03-23 08:35] LABS: PHOSPHORUS 2.1 mg/dL (2.5-4.9)
[2017-03-23] MEDS: LEVOTHYROXINE SODIUM 100 MCG/ VIAL IV SCH (09:12)
[2017-03-23] MEDS: MEMANTINE HCL 10MG TABLET PO SCH (09:12)
[2017-03-23] MEDS: HYDROCHLOROTHIAZIDE 25MG TABLET PO SCH (09:12)
[2017-03-23] MEDS: FINASTERIDE 5MG TABLET PO SCH (09:12)
[2017-03-23] MEDS: AMILORIDE HCL 5 MG TABLET PO SCH (09:13)
[2017-03-23 10:13] LABS: PLATELET ESTIMATE NORMAL
[2017-03-23 12:00] VITALS: BP 128/67
[2017-03-23 16:00] VITALS: BP 120/72
[2017-03-23] MEDS: LEVOFLOXACIN 250MG PREMIX 50 ML IV SCH (17:51)
[2017-03-23] MEDS: DONEPEZIL HCL 10MG TABLET PO SCH (21:53)
[2017-03-23] MEDS: LATANOPROST 0.005% OPHTH DROPS 2.5ML BOTHEYE SCH (21:53)
[2017-03-23] MEDS: GABAPENTIN 300MG CAPSULE PO SCH (21:55)
[2017-03-23] MEDS: OLANZAPINE 10MG TABLET PO SCH (21:55)
[2017-03-23] MEDS: TAMSULOSIN HCL 0.4MG SR CAPSULE PO SCH (21:55)
[2017-03-24] VITALS (7 sets, daily range): BP systolic 108–131; BP diastolic 72–80
[2017-03-24] MEDS: IPRATROPIUM/ALBUTEROL 0.5-3(2.5)MG/3ML NEB HHN SCH ×2 (01:31→08:06)
[2017-03-24] MEDS: FAMOTIDINE 20MG TABLET PO SCH (07:06)
[2017-03-24 07:14] LABS: HEMATOCRIT. 46.3 % (42.0-52.0); HEMOGLOBIN. 15.6 g/dL (14.0-18.0); MEAN CORPUSCULAR HEMOGLOBIN 30.7 pg (28.0-32.0); MEAN CORPUSCULAR VOLUME 91.1 fL (80.0-94.0); MEAN PLATELET VOLUME 8.8 fl (7.4-10.4); PLATELET 230 x1000/uL (130-400); RED BLOOD CELL COUNT 5.08 mill/uL (4.7-6.1); RED CELL DISTRIBUTION WIDTH 14.4 % (11.6-14.6)
[2017-03-24 07:49] LABS: CARBON DIOXIDE 24 mEq/L (21-32); CHLORIDE 111 mEq/L (98-107); PHOSPHORUS 2.5 mg/dL (2.5-4.9)
[2017-03-24] MEDS: AMILORIDE HCL 5 MG TABLET PO SCH (09:13)
[2017-03-24] MEDS: HYDROCHLOROTHIAZIDE 25MG TABLET PO SCH (09:13)
[2017-03-24] MEDS: MEMANTINE HCL 10MG TABLET PO SCH (09:13)
[2017-03-24] MEDS: FINASTERIDE 5MG TABLET PO SCH (09:13)
[2017-03-24] MEDS: LEVOTHYROXINE SODIUM 100 MCG/ VIAL IV SCH (09:28)
[2017-03-24] MEDS ORDERED: LACTULOSE 20G/30ML UDC PO NR (10:15)
[2017-03-24] MEDS ORDERED: DOCUSATE SODIUM 250MG CAPSULE PO NR (10:15)
[2017-03-24] MEDS ORDERED: LEVOFLOXACIN 250MG TABLET PO SCH (11:00)
[2017-03-24 18:00] LABS: PLATELET ESTIMATE NORMAL
[2017-03-24] MEDS ORDERED: DILTIAZEM HCL 60MG TABLET PO NR (19:17)
== END 2017-03-24 23:20 | DRG 682 ==
LOC: ER 20:24 → 6EST 03-18 00:56 → ENRESERV 03-18 03:48 → 6EST 03-18 11:07
PROVIDERS: ADMIT Family Medicine Adult Medicine; ATTEND Family Medicine Adult Medicine
DX: N17.9 Acute kidney failure, unspecified (principal); G93.41 Metabolic encephalopathy; E87.0 Hyperosmolality and hypernatremia; E46 Unspecified protein-calorie malnutrition; G20 Parkinson's disease; R16.0 Hepatomegaly, not elsewhere classified; J84.10 Pulmonary fibrosis, unspecified; F20.0 Paranoid schizophrenia; N39.0 Urinary tract infection, site not specified; Z68.1 Body mass index [BMI] 19.9 or less, adult; T43.595A Adverse effect of other antipsychotics and neuroleptics, initial encounter; E03.9 Hypothyroidism, unspecified; E86.0 Dehydration; E87.6 Hypokalemia; N18.9 Chronic kidney disease, unspecified; N40.0 Benign prostatic hyperplasia without lower urinary tract symptoms; R62.7 Adult failure to thrive; K80.20 Calculus of gallbladder without cholecystitis without obstruction; E78.5 Hyperlipidemia, unspecified; F02.80 Dementia in other diseases classified elsewhere, unspecified severity, without behavioral disturbance, psychotic disturbance, mood disturbance, and anxiety; F17.210 Nicotine dependence, cigarettes, uncomplicated; G30.9 Alzheimer's disease, unspecified; I12.9 Hypertensive chronic kidney disease with stage 1 through stage 4 chronic kidney disease, or unspecified chronic kidney disease; R73.9 Hyperglycemia, unspecified; N41.9 Inflammatory disease of prostate, unspecified; N25.1 Nephrogenic diabetes insipidus
CPT/HCPCS: 36415; 71010; 71250; 76700; 80048; 80053; 80076; 80178; 80305; 81001; 81003; 82140; 82533; 82550; 83001; 83002; 83520; 83735; 83935; 84100; 84300; 84402; 84403; 84439; 84443; 85025; 85027; 85610; 86376; 86705; 86709; 86803; 87040; 87086; 87106; 87340; 92610; 93005; 94640; 96360; 96361; 97162; 97166; 99285; C1893; C9113; G0482; J1956; J2060; J3490; J7030; J7040; J7042; J7070; J7620

== ENCOUNTER 2018-08-27 12:13 | Inpatient (IN) | payer MEDICAID, MEDICARE ==
[~2018-08-27] VITALS: Ht 175.3 cm; Wt 95.3 kg
[2018-08-27] MEDS ORDERED: SODIUM CHLORIDE 0.9% 1,000 ML IV ONE (13:40)
[2018-08-27 14:36] LABS: BASOPHILS % 0.5 % (0.0-2.0); EOSINOPHILS % 2.2 % (0.0-5.0); HEMATOCRIT. 45.9 % (42.0-52.0); HEMOGLOBIN. 15.5 g/dL (14.0-18.0); LYMPHOCYTES % 27.5 % (20.0-50.0); MEAN CORPUSCULAR HEMOGLOBIN 32.3 pg (28.0-32.0); MEAN CORPUSCULAR VOLUME 95.7 fL (80.0-94.0); MEAN PLATELET VOLUME 7.4 fl (7.4-10.4); MONOCYTES % 8.9 % (2.0-8.0); NEUTROPHILS % 60.9 % (40.0-76.0); PLATELET 248 x1000/uL (130-400); RED CELL DISTRIBUTION WIDTH 14.2 % (11.6-14.6)
[2018-08-27 14:42] LABS: CHLORIDE 104 mEq/L (98-107)
[2018-08-27 14:46] LABS: ETHANOL BLOOD < 10 mg/dL
[2018-08-27 14:55] LABS: INR 1.1; PROTHROMBIN TIME 10.6 sec (9.1-11.1)
[2018-08-27 15:13] LABS: CLARITY URINE CLEAR (CLEAR); COLOR URINE YELLOW (YELLOW); KETONES URINE NEGATIVE (NEGATIVE); LEUKOCYTE ESTERASE URINE NEGATIVE (NEGATIVE); NITRITE URINE NEGATIVE (NEGATIVE); OCCULT BLOOD URINE NEGATIVE (NEGATIVE); PROTEIN URINE NEGATIVE (NEGATIVE); SPECIFIC GRAVITY URINE 1.019 (1.005-1.030); UROBILINOGEN URINE 0.2 E.U./dL (0.2-1.0)
[2018-08-27 15:23] LABS: OPIATES URINE SCREEN NEGATIVE (NEGATIVE)
[2018-08-27 15:24] LABS: CANNABINOID URINE SCREEN NEGATIVE (NEGATIVE); PHENCYCLIDINE URINE SCREEN NEGATIVE (NEGATIVE)
[2018-08-27 15:25] LABS: METHADONE URINE SCREEN NEGATIVE (NEGATIVE)
[2018-08-27 15:26] LABS: *AMPHETAMINES SCREEN URINE NEGATIVE (NEGATIVE); *BARBITURATES SCREEN URINE NEGATIVE (NEGATIVE); *BENZODIAZEPINES SCREEN URINE NEGATIVE (NEGATIVE); *COCAINE SCREEN URINE NEGATIVE (NEGATIVE)
[2018-08-27 20:00] VITALS: BP 126/84
[2018-08-27] MEDS ORDERED: MAGNESIUM/ALUMINUM HYDROXIDE/SIMETHICONE 30ML UDC PO PRN (20:15)
[2018-08-27] MEDS ORDERED: ONDANSETRON HCL 4MG/2ML INJ IV PRN (20:15)
[2018-08-27] MEDS ORDERED: CLONIDINE 0.1MG TABLET PO PRN (20:15)
[2018-08-27] MEDS ORDERED: ACETAMINOPHEN 325MG TABLET PO PRN (20:15)
[2018-08-27 21:30] VITALS: BP 126/84
[2018-08-28] VITALS: BP 126/75
[2018-08-28] MEDS ORDERED: LORA2VIA34 IV (01:11)
[2018-08-28] MEDS ORDERED: FAMO-135 PO (01:11)
[2018-08-28] MEDS ORDERED: ZYDS20 PO (01:11)
[2018-08-28] MEDS ORDERED: FINA1TAB18 PO (01:11)
[2018-08-28] MEDS ORDERED: LEVO50TA8 PO (01:11)
[2018-08-28] MEDS ORDERED: GABA300C PO (01:11)
[2018-08-28] MEDS ORDERED: AMIL5TAB8 PO (01:11)
[2018-08-28] MEDS ORDERED: ACET-2708 PO (01:11)
[2018-08-28] MEDS ORDERED: TAMS-11 PO (01:11)
[2018-08-28] MEDS ORDERED: DONE10TA43 PO (01:11)
[2018-08-28] MEDS ORDERED: QUET300T2 PO (01:11)
[2018-08-28] MEDS ORDERED: ACET-2178 PO (01:11)
[2018-08-28] MEDS ORDERED: DOCU250C69 PO (01:11)
[2018-08-28] MEDS ORDERED: HYDR25TA PO (01:11)
[2018-08-28] MEDS ORDERED: DIVA500T3 PO (01:11)
[2018-08-28] MEDS ORDERED: MEMA10TA2 PO (01:11)
[2018-08-28] MEDS ORDERED: IPRA3AMP9 HHN (01:11)
[2018-08-28] MEDS ORDERED: BENZ1TAB7 PO (01:12)
[2018-08-28 04:00] VITALS: BP 115/77
[2018-08-28 06:57] LABS: EOSINOPHILS % 2.7 % (0.0-5.0); HEMATOCRIT. 44.5 % (42.0-52.0); HEMOGLOBIN. 15.1 g/dL (14.0-18.0); LYMPHOCYTES % 29.6 % (20.0-50.0); MEAN CORPUSCULAR HEMOGLOBIN 32.6 pg (28.0-32.0); MEAN PLATELET VOLUME 7.6 fl (7.4-10.4); MONOCYTES % 10.2 % (2.0-8.0); NEUTROPHILS % 56.5 % (40.0-76.0); PLATELET 254 x1000/uL (130-400); RED BLOOD CELL COUNT 4.63 mill/uL (4.7-6.1); RED CELL DISTRIBUTION WIDTH 14.1 % (11.6-14.6)
[2018-08-28 07:02] LABS: CHLORIDE 105 mEq/L (98-107)
[2018-08-28 07:32] LABS: PHOSPHORUS 3.9 mg/dL (2.5-4.9)
[2018-08-28 07:34] LABS: LDL CHOLESTEROL 250 mg/dL (5-100)
[2018-08-28 07:35] LABS: T4 FREE 0.31 ng/dL (0.76-1.46)
[2018-08-28 07:36] LABS: HDL CHOLESTEROL 41 mg/dL (40-59)
[2018-08-28 08:00] VITALS: BP 108/48
[2018-08-28] MEDS ORDERED: IPRATROPIUM/ALBUTEROL 0.5-3(2.5)MG/3ML NEB HHN PRN (11:00)
[2018-08-28] MEDS ORDERED: LORAZEPAM 1 MG IV PRN (11:00)
[2018-08-28] MEDS ORDERED: MEDICATION NOT ON FORMULARY EA (Famotidine (Pepcid) 20 MG) PO SCH (11:00)
[2018-08-28] MEDS ORDERED: LEVOTHYROXINE SODIUM 50MCG TABLET PO SCH (11:00)
[2018-08-28] MEDS ORDERED: BENZTROPINE MESYLATE 0.5 MG PO SCH (11:00)
[2018-08-28] MEDS ORDERED: MEDICATION NOT ON FORMULARY EA (Finasteride 5 MG) PO SCH (11:00)
[2018-08-28] MEDS ORDERED: AMILORIDE HCL PO SCH (11:00)
[2018-08-28] MEDS ORDERED: MEDICATION NOT ON FORMULARY EA (Docusate Sodium 250 MG) PO SCH (11:00)
[2018-08-28] MEDS ORDERED: LORAZEPAM 2MG/ML CPJ IV PRN (11:45)
[2018-08-28 12:00] VITALS: BP 111/49
[2018-08-28] MEDS: BENZTROPINE MESYLATE 0.5MG TABLET PO SCH ×2 (12:00→17:58)
[2018-08-28] MEDS: AMILORIDE HCL 5 MG TABLET PO SCH (12:00)
[2018-08-28] MEDS ORDERED: LACTULOSE 20G/30ML UDC PO NR (12:45)
[2018-08-28] MEDS: HYDROCHLOROTHIAZIDE 25MG TABLET PO SCH (13:18)
[2018-08-28] MEDS: TAMSULOSIN HCL 0.4MG SR CAPSULE PO SCH (13:18)
[2018-08-28] MEDS: MEMANTINE HCL 10MG TABLET PO SCH (13:18)
[2018-08-28 16:00] VITALS: BP 110/60
[2018-08-28] MEDS: FAMOTIDINE 20MG TABLET PO SCH (16:09)
[2018-08-28] MEDS: DOCUSATE SODIUM 250MG CAPSULE PO SCH (16:09)
[2018-08-28] MEDS: FINASTERIDE 5MG TABLET PO SCH (16:09)
[2018-08-28 16:34] LABS: FOLIC ACID (FOLATE) SERUM 16.2 ng/mL (>5.38)
[2018-08-28] MEDS: LEVOTHYROXINE SODIUM 100 MCG/ VIAL IV SCH (17:38)
[2018-08-28] MEDS: LIOTHYRONINE SODIUM 5MCG TABLET PO SCH (17:58)
[2018-08-28] MEDS: DONEPEZIL HCL 10MG TABLET PO SCH (17:59)
[2018-08-28 20:00] VITALS: BP 135/53
[2018-08-28] MEDS: QUETIAPINE FUMARATE 100MG TABLET PO SCH (20:53)
[2018-08-28] MEDS: DIVALPROEX SODIUM 250MG DR TABLET PO SCH (20:53)
[2018-08-28] MEDS: OLANZAPINE 10MG TABLET PO SCH (20:53)
[2018-08-28] MEDS: GABAPENTIN 300MG CAPSULE PO SCH (20:53)
[2018-08-28] MEDS ORDERED: OLANZAPINE PO SCH (21:00)
[2018-08-28] MEDS ORDERED: ATORVASTATIN CALCIUM 20MG TABLET PO SCH (21:00)
[2018-08-28] MEDS ORDERED: DIVALPROEX SODIUM 750 MG PO SCH (21:00)
[2018-08-28] MEDS ORDERED: GABAPENTIN 300 MG PO SCH (21:00)
[2018-08-28] MEDS ORDERED: MEDICATION NOT ON FORMULARY EA (Quetiapine Fumarate (Seroquel) 300 MG) PO SCH (21:00)
[2018-08-29] VITALS: BP 141/72
[2018-08-29 04:00] VITALS: BP 123/77
[2018-08-29] MEDS ORDERED: ALENDRONATE SODIUM 35MG TABLET PO SCH (06:45)
[2018-08-29 06:52] VITALS: BP 123/77
[2018-08-29 08:00] VITALS: BP 98/52
[2018-08-29] MEDS: HYDROCHLOROTHIAZIDE 25MG TABLET PO SCH (09:00)
[2018-08-29] MEDS: AMILORIDE HCL 5 MG TABLET PO SCH (09:00)
[2018-08-29] MEDS: TAMSULOSIN HCL 0.4MG SR CAPSULE PO SCH (09:00)
[2018-08-29] MEDS: LIOTHYRONINE SODIUM 5MCG TABLET PO SCH ×2 (09:19→19:12)
[2018-08-29] MEDS: DOCUSATE SODIUM 250MG CAPSULE PO SCH (09:19)
[2018-08-29] MEDS: FAMOTIDINE 20MG TABLET PO SCH (09:19)
[2018-08-29] MEDS: BENZTROPINE MESYLATE 0.5MG TABLET PO SCH ×2 (09:19→19:08)
[2018-08-29] MEDS: MEMANTINE HCL 10MG TABLET PO SCH (09:19)
[2018-08-29] MEDS: LEVOTHYROXINE SODIUM 100 MCG/ VIAL IV SCH (09:41)
[2018-08-29] MEDS: FINASTERIDE 5MG TABLET PO SCH (09:43)
[2018-08-29 16:00] VITALS: BP 108/56
[2018-08-29 17:18] LABS: BASOPHILS % 1.1 % (0.0-2.0); EOSINOPHILS % 2.3 % (0.0-5.0); HEMATOCRIT. 40.9 % (42.0-52.0); HEMOGLOBIN. 13.8 g/dL (14.0-18.0); LYMPHOCYTES % 26.3 % (20.0-50.0); MEAN CORPUSCULAR HEMOGLOBIN 32.1 pg (28.0-32.0); MEAN PLATELET VOLUME 7.6 fl (7.4-10.4); MONOCYTES % 11.8 % (2.0-8.0); NEUTROPHILS % 58.5 % (40.0-76.0); PLATELET 246 x1000/uL (130-400); RED BLOOD CELL COUNT 4.31 mill/uL (4.7-6.1); RED CELL DISTRIBUTION WIDTH 13.9 % (11.6-14.6)
[2018-08-29 17:27] LABS: CHLORIDE 103 mEq/L (98-107)
[2018-08-29] MEDS: DONEPEZIL HCL 10MG TABLET PO SCH (19:08)
[2018-08-29 20:00] VITALS: BP 113/52
[2018-08-29] MEDS: DIVALPROEX SODIUM 250MG DR TABLET PO SCH (21:00)
[2018-08-29] MEDS: GABAPENTIN 300MG CAPSULE PO SCH (21:00)
[2018-08-29] MEDS: QUETIAPINE FUMARATE 100MG TABLET PO SCH (21:00)
[2018-08-29] MEDS: OLANZAPINE 10MG TABLET PO SCH (21:00)
[2018-08-30] VITALS: BP 138/57
[2018-08-30 04:00] VITALS: BP 109/64
[2018-08-30 07:30] LABS: CHLORIDE 105 mEq/L (98-107)
[2018-08-30 07:33] LABS: BASOPHILS % 0.8 % (0.0-2.0); EOSINOPHILS % 3.6 % (0.0-5.0); HEMATOCRIT. 41.1 % (42.0-52.0); HEMOGLOBIN. 13.7 g/dL (14.0-18.0); LYMPHOCYTES % 29.8 % (20.0-50.0); MEAN CORPUSCULAR VOLUME 95.7 fL (80.0-94.0); MEAN PLATELET VOLUME 7.5 fl (7.4-10.4); MONOCYTES % 10.2 % (2.0-8.0); NEUTROPHILS % 55.6 % (40.0-76.0); PLATELET 228 x1000/uL (130-400); RED BLOOD CELL COUNT 4.29 mill/uL (4.7-6.1)
[2018-08-30 08:00] VITALS: BP 127/74
[2018-08-30] MEDS: DOCUSATE SODIUM 250MG CAPSULE PO SCH ×2 (09:00→10:28)
[2018-08-30] MEDS: TAMSULOSIN HCL 0.4MG SR CAPSULE PO SCH (10:28)
[2018-08-30] MEDS: AMILORIDE HCL 5 MG TABLET PO SCH (10:28)
[2018-08-30] MEDS: LEVOTHYROXINE SODIUM 100 MCG/ VIAL IV SCH (10:29)
[2018-08-30] MEDS: MEMANTINE HCL 10MG TABLET PO SCH (10:29)
[2018-08-30] MEDS: HYDROCHLOROTHIAZIDE 25MG TABLET PO SCH (10:29)
[2018-08-30] MEDS: FINASTERIDE 5MG TABLET PO SCH (10:29)
[2018-08-30] MEDS: LIOTHYRONINE SODIUM 5MCG TABLET PO SCH ×2 (10:29→18:48)
[2018-08-30] MEDS: FAMOTIDINE 20MG TABLET PO SCH (10:29)
[2018-08-30] MEDS: BENZTROPINE MESYLATE 0.5MG TABLET PO SCH ×2 (10:29→18:46)
[2018-08-30 12:00] VITALS: BP 102/75
[2018-08-30 16:00] VITALS: BP 125/68
[2018-08-30] MEDS: DONEPEZIL HCL 10MG TABLET PO SCH (18:46)
[2018-08-30 20:00] VITALS: BP_SYST 122; BP_SYST 127; BP_DIAS 70; BP_DIAS 71
[2018-08-30] MEDS: OLANZAPINE 10MG TABLET PO SCH (20:48)
[2018-08-30] MEDS: QUETIAPINE FUMARATE 100MG TABLET PO SCH (20:48)
[2018-08-30] MEDS: DIVALPROEX SODIUM 250MG DR TABLET PO SCH (20:49)
[2018-08-30] MEDS: GABAPENTIN 300MG CAPSULE PO SCH (20:49)
[2018-08-31 04:00] VITALS: BP 130/67
[2018-08-31 08:00] VITALS: BP 101/86
[2018-08-31] MEDS: HYDROCHLOROTHIAZIDE 25MG TABLET PO SCH (09:00)
[2018-08-31] MEDS: AMILORIDE HCL 5 MG TABLET PO SCH (09:39)
[2018-08-31] MEDS: LEVOTHYROXINE SODIUM 100 MCG/ VIAL IV SCH (09:39)
[2018-08-31] MEDS: BENZTROPINE MESYLATE 0.5MG TABLET PO SCH ×2 (09:40→18:05)
[2018-08-31] MEDS: DOCUSATE SODIUM 250MG CAPSULE PO SCH (09:40)
[2018-08-31] MEDS: FAMOTIDINE 20MG TABLET PO SCH (09:40)
[2018-08-31] MEDS: TAMSULOSIN HCL 0.4MG SR CAPSULE PO SCH (09:40)
[2018-08-31] MEDS: MEMANTINE HCL 10MG TABLET PO SCH (09:41)
[2018-08-31] MEDS: LIOTHYRONINE SODIUM 5MCG TABLET PO SCH ×2 (09:41→18:07)
[2018-08-31] MEDS: FINASTERIDE 5MG TABLET PO SCH (09:41)
[2018-08-31 12:00] VITALS: BP 130/81
[2018-08-31 16:00] VITALS: BP 135/74
[2018-08-31 17:25] LABS: T4 FREE 0.55 ng/dL (0.76-1.46)
[2018-08-31] MEDS: DONEPEZIL HCL 10MG TABLET PO SCH (18:05)
[2018-08-31 20:00] VITALS: BP 120/67
[2018-08-31] MEDS ORDERED: OLANZAPINE 5MG TABLET PO NR (23:45)
[2018-08-31] MEDS ORDERED: OLANZAPINE 10MG TABLET PO NR (23:45)
[2018-09-01] VITALS: BP 132/78
[2018-09-01] MEDS: DIVALPROEX SODIUM 250MG DR TABLET PO SCH (00:42)
[2018-09-01] MEDS: GABAPENTIN 300MG CAPSULE PO SCH (00:42)
[2018-09-01] MEDS: QUETIAPINE FUMARATE 100MG TABLET PO SCH (00:42)
[2018-09-01 04:00] VITALS: BP 138/94
[2018-09-01 06:46] LABS: BASOPHILS % 1.1 % (0.0-2.0); EOSINOPHILS % 2.3 % (0.0-5.0); HEMATOCRIT. 41.2 % (42.0-52.0); HEMOGLOBIN. 13.6 g/dL (14.0-18.0); LYMPHOCYTES % 21.8 % (20.0-50.0); MEAN CORPUSCULAR HEMOGLOBIN 31.7 pg (28.0-32.0); MEAN PLATELET VOLUME 7.4 fl (7.4-10.4); NEUTROPHILS % 60.8 % (40.0-76.0); PLATELET 221 x1000/uL (130-400); RED BLOOD CELL COUNT 4.29 mill/uL (4.7-6.1); RED CELL DISTRIBUTION WIDTH 14.1 % (11.6-14.6)
[2018-09-01 07:08] LABS: CHLORIDE 103 mEq/L (98-107)
[2018-09-01 08:00] VITALS: BP 126/66
[2018-09-01 08:19] LABS: PROLACTIN 21.6 ng/mL (4.0-15.2)
[2018-09-01] MEDS: AMILORIDE HCL 5 MG TABLET PO SCH (09:12)
[2018-09-01] MEDS: FINASTERIDE 5MG TABLET PO SCH (09:12)
[2018-09-01] MEDS: LEVOTHYROXINE SODIUM 100 MCG/ VIAL IV SCH (09:12)
[2018-09-01] MEDS: DOCUSATE SODIUM 250MG CAPSULE PO SCH (09:13)
[2018-09-01] MEDS: BENZTROPINE MESYLATE 0.5MG TABLET PO SCH ×2 (09:13→18:04)
[2018-09-01] MEDS: MEMANTINE HCL 10MG TABLET PO SCH (09:13)
[2018-09-01] MEDS: FAMOTIDINE 20MG TABLET PO SCH (09:13)
[2018-09-01] MEDS: TAMSULOSIN HCL 0.4MG SR CAPSULE PO SCH (09:13)
[2018-09-01] MEDS: LIOTHYRONINE SODIUM 5MCG TABLET PO SCH ×2 (09:13→18:04)
[2018-09-01] MEDS: HYDROCHLOROTHIAZIDE 25MG TABLET PO SCH (09:13)
[2018-09-01 12:00] VITALS: BP 137/65
[2018-09-01 13:59] LABS: A/G RATIO 1.1 (0.7-1.7); ALBUMIN 3.3 g/dL (2.9-4.4); ALPHA-1-GLOBULIN 0.2 g/dL (0.0-0.4); ALPHA-2-GLOBULIN 0.8 g/dL (0.4-1.0); BETA GLOBULIN 1.1 g/dL (0.7-1.3); GAMMA GLOBULINS 0.8 g/dL (0.4-1.8); GLOBULIN TOTAL 2.9 g/dL (2.2-3.9); M-SPIKE Not Observed g/dL (Not Observed); TOTAL PROTEIN SERUM 6.2 g/dL (6.0-8.5)
[2018-09-01] MEDS ORDERED: LACTULOSE 20G/30ML UDC PO SCH (15:29)
[2018-09-01 16:00] VITALS: BP 133/48
[2018-09-01] MEDS: DONEPEZIL HCL 10MG TABLET PO SCH (18:04)
[2018-09-01 19:18] VITALS: BP 133/48
[2018-09-01] MEDS ORDERED: POLYETHYLENE GLYCOL 3350 (17GM) 1 DOSE PACK PO SCH (21:00)
[2018-09-01] MEDS ORDERED: OLANZAPINE 10MG TABLET PO SCH (21:00)
[2018-09-01] MEDS ORDERED: OLANZAPINE 5MG TABLET PO SCH (21:00)
[2018-09-02] MEDS ORDERED: DOCUSATE SODIUM 100MG CAPSULE PO SCH (09:00)
== END 2018-09-01 19:30 | DRG 643 ==
LOC: ER 12:13 → 5WST 16:30 → EDBEDREQ 16:37 → ENRESERV 20:21
PROVIDERS: ADMIT Family Medicine Adult Medicine; ATTEND Family Medicine Adult Medicine
DX: E06.3 Autoimmune thyroiditis (principal); G92 Toxic encephalopathy; I48.92 Unspecified atrial flutter; F20.0 Paranoid schizophrenia; M80.88XA Other osteoporosis with current pathological fracture, vertebra(e), initial encounter for fracture; E23.0 Hypopituitarism; R47.01 Aphasia; M48.02 Spinal stenosis, cervical region; M48.061 Spinal stenosis, lumbar region without neurogenic claudication; E78.00 Pure hypercholesterolemia, unspecified; E78.5 Hyperlipidemia, unspecified; R55 Syncope and collapse; F02.80 Dementia in other diseases classified elsewhere, unspecified severity, without behavioral disturbance, psychotic disturbance, mood disturbance, and anxiety; G30.9 Alzheimer's disease, unspecified; H40.9 Unspecified glaucoma; I11.9 Hypertensive heart disease without heart failure; M40.294 Other kyphosis, thoracic region; M47.894 Other spondylosis, thoracic region; D64.9 Anemia, unspecified; G20 Parkinson's disease; N40.0 Benign prostatic hyperplasia without lower urinary tract symptoms; W06.XXXA Fall from bed, initial encounter; Z91.14 Patient's other noncompliance with medication regimen; Z79.890 Hormone replacement therapy; Y93.89 Activity, other specified; Y92.122 Bedroom in nursing home as the place of occurrence of the external cause; Y99.8 Other external cause status
CPT/HCPCS: 36415; 70551; 71045; 72141; 72146; 72148; 80048; 80061; 80165; 80305; 80320; 82140; 82607; 82746; 83036; 83605; 83735; 84100; 84145; 84146; 84155; 84165; 84403; 84439; 84443; 84481; 84484; 92523; 92610; 93005; 93306; 93970; 96365; 96375; 97162; 97165; 99285; J3490; J7030; G0480